=== PATIENT | female | born 1995 | race Caucasian/White ===

== ENCOUNTER → 2017-02-14 | Outpatient (CLI) | payer OTHER ==
--- NOTE | 2017-02-14 10:16 | DIAGNOSTIC IMAGING REPORT ---
RIGHT KNEE 4 OR MORE CLINICAL HISTORY: Right knee pain COMPARISON: None. DISCUSSION: No fractures or dislocations are visualized. There is irregularity of the anterior tibial tuberosity which is felt to be chronic. IMPRESSION: 1. Irregularity of the anterior tibial tuberosity, a finding which is felt to be chronic 2. No evidence of fracture 3. No destructive lesions identified Electronically signed by: Harish Rojas M.D. 02/14/2017 10:15 AM Dictated Date/Time: 02/14/2017 10:11 AM
--- NOTE | 2017-02-14 10:16 | DIAGNOSTIC IMAGING REPORT ---
RIGHT ELBOW 3 VIEWS HISTORY: RIGHT KNEE ELBOW PAIN Right COMPARISON: None. FINDINGS: There is no fracture or dislocation. Soft tissues are unremarkable. No radiopaque foreign bodies. No joint effusion. IMPRESSION: No fractures. Electronically signed by: Joseluis Lopez M.D. 02/14/2017 10:15 AM Dictated Date/Time: 02/14/2017 10:10 AM
== END | disposition home or self-care (01) ==
LOC: C.RDSM 15:20
PROVIDERS: ATTEND Family Medicine
DX: M25.561 Pain in right knee (principal); S59.901A Unspecified injury of right elbow, initial encounter; X58.XXXA Exposure to other specified factors, initial encounter; R93.7 Abnormal findings on diagnostic imaging of other parts of musculoskeletal system